=== PATIENT | male | born 1955 | race African-American/Black ===

== ENCOUNTER 2017-12-13 16:35 | Emergency (ER) | payer OTHER ==
[2017-12-13 17:09] VITALS: BP 144/70; PULSE 65; TEMP 97.4; BMI 28.7
--- NOTE | 2017-12-13 17:11 | PDOC ---
Rapid Medical Evaluation Chief Complaint: Foreign Body (FB) Time Seen by Provider: 12/13/17 17:07 Medical Evaluation: Allergies Allergy/AdvReac Type Severity Reaction Status Date / Time No Known Drug Allergies Allergy Verified 12/13/17 17:09 Vital Signs Temp Pulse Resp BP Pulse Ox 97.4 F L 65 16 144/70 99 12/13/17 17:05 12/13/17 17:05 12/13/17 17:05 12/13/17 17:05 12/13/17 17:05 12/13/17 17:11 I have performed a brief in-person evaluation of this patient. The patient presents with a chief complaint of: embedded earring to right earlobe, Pertinent physical exam findings: swollen embedded screw-on, earring back I have ordered the following: nothing The patient will proceed to the ED for further evaluation.
--- NOTE | 2017-12-13 18:15 | PDOC ---
History of Present Illness - General Chief Complaint: Foreign Body (FB) Stated Complaint: OBJECT IN RT EARLOBE Time Seen by Provider: 12/13/17 17:07 History Source: Patient Exam Limitations: No Limitations - History of Present Illness Initial Comments: CHIEF COMPLAINT: 62 y/o male with earring stuck in his right earlobe x 1 week. HISTORY OF PRESENT ILLNESS: The patient denies all other symptoms. Vital signs on arrival are within normal limits. REVIEW OF SYSTEMS: GENERAL/CONSTITUTIONAL: No fever/chills. No weakness. No weight change. MUSCULOSKELETAL: No joint or muscle swelling or pain. No neck or back pain. SKIN: +earring suck in right earlob NEUROLOGIC: No headache, vertigo, loss of consciousness, or loss of sensation. PHYSICAL EXAM: GENERAL: The patient is awake, alert, and fully oriented, in no acute distress. HEAD: Normal with no signs of trauma. EYES: Pupils equal, round and reactive to light, extraocular movements intact, sclera anicteric, conjunctiva clear. EXTREMITIES: Normal range of motion, no edema. NEUROLOGICAL: Normal speech, normal gait. SKIN: back to earring imbedded in posterior right earlobe. No surrounding erythema or edema Past History - Past Medical History Allergies/Adverse Reactions: Allergies Allergy/AdvReac Type Severity Reaction Status Date / Time No Known Drug Allergies Allergy Verified 12/13/17 17:09 Home Medications: Ambulatory Orders Atorvastatin Ca [Lipitor] 10 mg PO DAILY 12/24/16 Oxycodone HCl/Acetaminophen [Percocet 10-325 mg Tablet] 1 each PO TID PRN Tamsulosin HCl [Flomax] 0.4 mg PO DAILY 12/24/16 Aspirin Coated [Ecotrin -] 81 mg PO BID tablet.ec 12/28/16 Celecoxib [CeleBREX -] 200 mg PO DAILY capsule 12/28/16 Multivitamins [Multivit ([facility] Formulary)] 1 tab PO DAILY tab 12/28/16 Anemia: No Asthma: No Cancer: No Cardiac Disorders: No CVA: No COPD: No CHF: No Dementia: No Diabetes: No GI Disorders: No Disorders: Yes (BPH) HTN: No Hypercholesterolemia: Yes Liver Disease: No Seizures: No Thyroid Disease: No - Surgical History Abdominal Surgery: No Appendectomy: No Cardiac Surgery: No Cholecystectomy: No Lung Surgery: No Neurologic Surgery: No Orthopedic Surgery: Yes (RIGHT TOTAL HIP REPLACEMENT 2006) - Suicide/Smoking/Psychosocial Hx Smoking History: Never smoked Have you smoked in the past 12 months: No Hx Alcohol Use: Yes (SOCIALLY) Drug/Substance Use Hx: No Substance Use Type: Alcohol Hx Substance Use Treatment: No *Physical Exam - Vital Signs Last Vital Signs Temp Pulse Resp BP Pulse Ox 97.4 F L 65 16 144/70 99 12/13/17 17:05 12/13/17 17:05 12/13/17 17:05 12/13/17 17:05 12/13/17 17:05 Medical Decision Making - Medical Decision Making A/P: 62 y/o male with earring stuck in the back of his right earlobe. Used sanitized forceps to grasp and untwist the back of the earring. AFter earring removed the earlobe was cleaned with hydrogen peroxide and betadine. Pt tolerated procedure well. Instructed him to keep it clean and covered and return to the ER with any worsening or concerning symptoms. The patient verbalizes understanding of all instructions, has no further questions and is awaiting discharge. *DC/Admit/Observation/Transfer Diagnosis at time of Disposition: Foreign body in ear lobe Qualifiers: Encounter type: initial encounter Laterality: right Qualified Code(s): S00.451A - Superficial foreign body of right ear, initial encounter - Discharge Dispostion Disposition: HOME Condition at time of disposition: Improved - Referrals Referrals: Benja Dailey [Primary Care Provider] - - Patient Instructions Printed Discharge Instructions: DI for Removal of Foreign Body From Ear Additional Instructions: discharge Instructions: -Keep area clean and dry -Return to the ER with any worsening or concerning symptoms - Post Discharge Activity
== END 2017-12-13 18:38 | disposition home or self-care (01) ==
LOC: JERFT 16:35
PROC: 09C0XZZ Extirpation of Matter from Right External Ear, External Approach (ICD-10-PCS; principal; 2017-12-13)
DX: S00.451A Superficial foreign body of right ear, initial encounter (principal); W45.8XXA Other foreign body or object entering through skin, initial encounter; Y93.89 Activity, other specified; Y92.89 Other specified places as the place of occurrence of the external cause; Y99.8 Other external cause status
CPT/HCPCS: 10120-25; 99281-25

== ENCOUNTER 2018-11-03 08:39 | Inpatient (IN) | payer OTHER ==
[2018-11-03 09:00] VITALS: BP 130/77; PULSE 86; TEMP 97.8; BMI 24.4
--- NOTE | 2018-11-03 09:08 | PDOC ---
History of Present Illness - General Chief Complaint: Vomiting/Diarrhea Stated Complaint: Vomiting/Diarrhea Time Seen by Provider: 11/03/18 09:08 - History of Present Illness Initial Comments: 63yo M with PMH of BPH and HLD presenting with vomiting, diarrhea, and abdominal pain x 2 days. Endorses 4-5 episodes of nonbloody bilious vomiting as well as 4-5 episodes of nonbloody watery diarrhea. Patient states that he feels somewhat distended. No dysuria, hematuria, or frequency. Had a colonoscopy about 6-7 years ago which showed one polyp. Patient does not have a GI doctor. No prior abdominal surgeries. Denies fever, chills, chest pain, or shortness of breath. Past History - Past Medical History Allergies/Adverse Reactions: Allergies Allergy/AdvReac Type Severity Reaction Status Date / Time No Known Drug Allergies Allergy Verified 11/03/18 09:19 Home Medications: Ambulatory Orders NK [No Known Home Medication] 11/03/18 Anemia: No Asthma: No Cancer: No Cardiac Disorders: No CVA: No COPD: No CHF: No Dementia: No Diabetes: No GI Disorders: No Disorders: Yes (BPH) HTN: No Hypercholesterolemia: Yes Liver Disease: No Seizures: No Thyroid Disease: No - Surgical History Abdominal Surgery: No Appendectomy: No Cardiac Surgery: No Cholecystectomy: No Lung Surgery: No Neurologic Surgery: No Orthopedic Surgery: Yes (RIGHT TOTAL HIP REPLACEMENT 2006) - Immunization History Immunization Up to Date: No - Suicide/Smoking/Psychosocial Hx Smoking History: Never smoked Have you smoked in the past 12 months: No Information on smoking cessation initiated: No Hx Alcohol Use: No Drug/Substance Use Hx: No Substance Use Type: Alcohol Hx Substance Use Treatment: No Review of Systems - Review of Systems Comments:: Constitutional: no fever, no chills HEENT: no throat pain, no dysphagia Cardiovascular: no chest pain, no palpitations Respiratory: no cough, no shortness of breath Gastrointestinal: +abdominal pain, +vomiting, +diarrhea Genitourinary: no dysuria, no frequency Musculoskeletal: no myalgia, no arthralgia Skin: no rash, no itching Neurologic: no headache, no dizziness *Physical Exam - Vital Signs Last Vital Signs Temp Pulse Resp BP Pulse Ox 97.8 F 86 18 130/77 98 11/03/18 08:58 11/03/18 08:58 11/03/18 08:58 11/03/18 08:58 11/03/18 08:58 - Physical Exam Comments: General: Awake, alert, and fully oriented, in no acute distress Head: No signs of trauma Eyes: EOMI, sclera anicteric ENT: Dry mucus membranes Neck: Normal ROM, supple Lungs: Lungs clear, Normal breath sounds Cardio: Regular rhythm, S1 and S2 present Abdomen: Tender to palpation periumbilical area and LLQ. Soft, bowel sounds hypoactive. No guarding, no rebound, no masses Extremities: Normal range of motion, Distal pulses present SKIN: Warm, Dry, normal turgor Neurologic: Cranial nerves II through XII grossly intact. Normal speech Moderate Sedation - Procedure Monitoring Vital Signs: Procedure Monitoring Vital Signs Temperature 97.8 F 11/03/18 08:58 Pulse Rate 86 11/03/18 08:58 Respiratory Rate 18 11/03/18 08:58 Blood Pressure 130/77 11/03/18 08:58 O2 Sat by Pulse Oximetry (%) 98 11/03/18 08:58 ED Treatment Course - LABORATORY CBC & Chemistry Diagram: 11/03/18 09:40 11/03/18 09:40 Medical Decision Making - Medical Decision Making 63yo M with PMH of BPH and HLD presenting with vomiting, diarrhea, and abdominal pain x 2 days. No fevers, chills, chest pain, or shortness of breath. -Labs -CT abd/pelvis -GI cocktail given: Patient endorses improvement in pain, now rated 6/10 -No vomiting/ diarrhea since coming to the ED 11/03/18 11:50 CT abd/pelvis shows a distal SBO; Paging general surgery. Plan to admit EKG: rate 72, QTc 442, NSR 11/03/18 12:27 Awaiting callback from general surgery. buffing wheel presser has called three times and left a voicemail 11/03/18 12:44 Awaiting callback from general surgery. Spoke with David León, nurse practitioner, who accepted patient for admission under Dr. Sheikh 11/03/18 13:07 Dr. Cotton called back. Recommendations given, and she will evaluate the patient. Patient refuses NG tube. 11/03/18 13:48 Patient reluctant to stay in the hospital. Explained the necessity of staying and being evaluated by the general surgeon. Also spoke with his girlfriend over the phone. Dr. Cotton at the bedside. 11/03/18 14:26 Patient wants to leave the hospital in order to get a second opinion. Will prepare AMA forms. 11/03/18 15:20 Extensively explained the benefits and risks of admission and patient voiced understanding. He acknowledges the possibility of and significant morbidity upon leaving AMA. He plans to get a second opinion and present to another hospital. Advised to not eat or drink anything in anticipation for likely surgery. Patient signed out AMA. 11/03/18 16:10 *DC/Admit/Observation/Transfer Diagnosis at time of Disposition: SBO (small bowel obstruction) - Discharge Dispostion Disposition: AGAINST MEDICAL ADVICE Condition at time of disposition: Guarded Decision to Admit order: Yes - Referrals - Patient Instructions - Post Discharge Activity
[2018-11-03] MEDS ORDERED: ONDANSETRON 4 MG/2 ML VIAL IVPUSH ONE (09:41)
[2018-11-03] MEDS ORDERED: SODIUM CHLORIDE 1,000 ML IV STA ×2 (09:41→13:28)
[2018-11-03] MEDS ORDERED: MAG HYDROX/AL HYDROX/SIMETH -MYLANTA- ORAL SUSPENSION PO ONE (09:41)
[2018-11-03] MEDS ORDERED: FAMOTIDINE 20 MG/50 ML IVPB 20 MG/50 ML MG IVPB ONE ×2 (09:41→10:03)
--- NOTE | 2018-11-03 09:49 | PDOC ---
Attending Attestation - Resident Resident Name: Cara Shelton - ED Attending Attestation I have performed the following: I have examined & evaluated the patient, The case was reviewed & discussed with the resident, I agree w/resident's findings & plan, Exceptions are as noted - HPI HPI: 11/03/18 09:46 63-year-old male with history of hyperlipidemia, BPH presents with left-sided abdominal pain, nausea vomiting and diarrhea for 2 days. The patient denies sick contacts or recent travels. Thinks that he may have eaten something bad. Denies abdominal surgery. Patient started developing constant periumbilical left lower quadrant pain with multiple episodes of vomiting. Has had multiple loose stools. Denies fevers. Denies dysuria. Last had a colonoscopy several years ago with reportedly small polyp. - Physicial Exam PE: 11/03/18 09:47 GENERAL: Awake, alert, and fully oriented, in no acute distress HEAD: No signs of trauma EYES: PERRLA, EOMI, ENT: Auricles normal inspection, hearing grossly normal, nares patent, + dry mucous membranes NECK: Normal ROM, supple ABDOMEN: Soft, nontender, +TTP LLQ and angel-umbilical region. No guarding, no rebound. No masses EXTREMITIES: Normal range of motion, no edema. No clubbing or cyanosis. No cords, erythema, or tenderness NEUROLOGICAL: Cranial nerves II through XII grossly intact. Normal speech SKIN: Warm, Dry, normal turgor, no rashes or lesions noted. - Medical Decision Making 11/03/18 09:48 Vital Signs Temp Pulse Resp BP Pulse Ox 97.8 F 86 18 130/77 98 11/03/18 08:58 11/03/18 08:58 11/03/18 08:58 11/03/18 08:58 11/03/18 08:58 63-year-old male presents with nausea, vomiting, diarrhea and left-sided abdominal pain. Differential includes gastroenteritis, colitis, diverticulitis, pancreatitis, biliary colic, other acute abdominal pathology. We'll obtain labs , CAT scan and pelvis and urinalysis and reassess. 11/03/18 13:15 CBC, BMP 11/03/18 09:40 11/03/18 09:40 CMP Sodium 139 mmol/L (136-145) 11/03/18 09:40 Potassium 4.4 mmol/L (3.5-5.1) 11/03/18 09:40 Chloride 104 mmol/L (98-107) 11/03/18 09:40 Carbon Dioxide 29 mmol/L (21-32) 11/03/18 09:40 Anion Gap 6 MMOL/L (8-16) L 11/03/18 09:40 BUN 19 mg/dL (7-18) H 11/03/18 09:40 Creatinine 1.4 mg/dL (0.55-1.3) H 11/03/18 09:40 Creat Clearance w eGFR 51.52 (>60) 11/03/18 09:40 Random Glucose 112 mg/dL (74-106) H 11/03/18 09:40 Calcium 9.2 mg/dL (8.5-10.1) 11/03/18 09:40 Total Bilirubin 1.3 mg/dL (0.2-1) H 11/03/18 09:40 AST 22 U/L (15-37) 11/03/18 09:40 ALT 37 U/L (13-61) 11/03/18 09:40 Alkaline Phosphatase 100 U/L (45-117) 11/03/18 09:40 Troponin I < 0.02 ng/ml (0.00-0.05) 11/03/18 09:40 Total Protein 7.6 g/dl (6.4-8.2) 11/03/18 09:40 Albumin 3.9 g/dl (3.4-5.0) 11/03/18 09:40 Lipase 78 U/L (73-393) 11/03/18 09:40 Urine Test Results Urine Color Dkyellow 11/03/18 09:40 Urine Appearance Clear 11/03/18 09:40 Urine pH 5.0 (5.0-8.0) 11/03/18 09:40 Ur Specific [place] 1.031 (1.010-1.035) 11/03/18 09:40 Urine Protein Negative (NEGATIVE) 11/03/18 09:40 Urine Glucose (UA) Negative (NEGATIVE) 11/03/18 09:40 Urine Ketones Negative (NEGATIVE) 11/03/18 09:40 Urine Blood Negative (NEGATIVE) 11/03/18 09:40 Urine Nitrite Negative (NEGATIVE) 11/03/18 09:40 Urine Bilirubin Negative (<2.0 mg/dL) 11/03/18 09:40 Ur Leukocyte Esterase Negative (NEGATIVE) 11/03/18 09:40 CT scan of abdomen and pelvis shows: small bowel obstruction with ?vascular compromise. Pt made NPO. Stat gen surg consult. Admit. 11/03/18 15:52 The patient was seen and evaluated by Dr. Cotton. The patient however wants to leave [place]. He states that he wishes for another opinion and already spoke to his family. Both Dr. Cotton and I have expressed our concerns for complications of a bowel obstruction, including perforation. However, the patient continues to wish not to stay. He has capacity and is AAOx3. Pt has decided to leave [place]. Heart Score/ECG Review #1 ECG reviewed & interpreted by me at: 09:50 11/03/18 10:04 NSR 72, no std/tayla, T wave flat III, normal axis, normal intervals, QTC 442 msec
[2018-11-03 10:03] LABS: BASO % 0.2 % (0-2.0); EOS % 0.7 % (0-4.5); HEMATOCRIT 46.3 % (35.4-49); HEMOGLOBIN 16.2 GM/dL (11.7-16.9); LYMPH % 37.6 % (8-40); MCH 31.6 pg (25.7-33.7); MEAN CELL VOLUME 90.4 fl (80-96); MEAN PLT VOLUME 7.3 fl (7.5-11.1); MONO % 13.6 % (3.8-10.2); NEUT % 47.9 % (42.8-82.8); PLATELET COUNT 282 K/MM3 (134-434); RBC 5.12 M/mm3 (4.00-5.60); RDW 14.1 % (11.9-15.9); WHITE BLOOD COUNT 6.3 K/mm3 (4.0-10.0)
[2018-11-03] MEDS ORDERED: MAG HYDROX/AL HYDROX/SIMETH 30 ML UNIT-DOSE CUP ONE (10:03)
[2018-11-03] MEDS ORDERED: ONDANSETRON 4 MG/2 ML VIAL ONE (10:03)
[2018-11-03 10:09] LABS: URINE APPEARANCE CLEAR; URINE BILIRUBIN NEGATIVE (<2.0 mg/dL); URINE COLOR DKYELLOW; URINE GLUCOSE (UA) NEGATIVE (NEGATIVE); URINE KETONE NEGATIVE (NEGATIVE); URINE LEUK ESTERASE NEGATIVE (NEGATIVE); URINE NITRITE NEGATIVE (NEGATIVE); URINE PROTEIN NEGATIVE (NEGATIVE); URINE UROBILINOGEN NEGATIVE mg/dL (0.2-1.0)
[2018-11-03 10:38] LABS: ALBUMIN 3.9 g/dl (3.4-5.0); ALK PHOS 100 U/L (45-117); ANION GAP 6 MMOL/L (8-16); BILIRUBIN,TOTAL 1.3 mg/dL (0.2-1); BLOOD UREA NITROGEN 19 mg/dL (7-18); CALCIUM 9.2 mg/dL (8.5-10.1); CHLORIDE 104 mmol/L (98-107); CO2 29 mmol/L (21-32); CREATININE 1.4 mg/dL (0.55-1.3); GLUCOSE,RANDOM 112 mg/dL (74-106); LIPASE 78 U/L (73-393); POTASSIUM 4.4 mmol/L (3.5-5.1); SGOT/AST 22 U/L (15-37); SGPT/ALT 37 U/L (13-61); SODIUM 139 mmol/L (136-145); TOT PROT 7.6 g/dl (6.4-8.2)
[2018-11-03] MEDS ORDERED: PIPERACILLIN/TAZOB 4.5 GM 4.5 GM in DEXTROSE 5%-WATER 100 ML IVPB ONE (13:30)
[2018-11-03] MEDS ORDERED: SODIUM CHLORIDE 1,000 ML IV SCH (13:30)
[2018-11-03] MEDS ORDERED: PIPERACILLIN/TAZOB 3.375 GM 3.375 GM/50 ML BAG IVPB ONE (13:43)
--- NOTE | 2018-11-03 15:39 | CONSULT ---
Consult Consult Specialty:: General Surgery Referred by:: Dr. Shelton Reason for Consultation:: SBO, no previous surgeries - History of Present Illness Chief Complaint: left abdominal pain, n/v, diarrhea History of Present Illness: 63yo M with h/o high cholesterol not on meds, s/p bilateral hip replacements, presented with colicky abdominal pain, more left-sided, starting since Saturday. It has been associated with diarrhea also starting then, and intermittent nausea and vomiting, as well as subjective fever/"hot flashes" (more with emesis ). The pain would come and go, and he tried Aleve for it, but it came back. He thought he was a getting a "cold in his stomach." Last night, he had Gatorade and crackers. He went out to get Rachel-T[place], which helped his stomach feel better when he took it, and he was able to sleep last night. Today, he thought he would come to the ER, "just to check out what was happening," not because any of his symptoms got worse. Last po was last night, still having diarrhea. In ER, labs significant for dehydration, Cr 1.4, Hb 16, wbc only 6.3. CT was done with IV but no enteral contrast showing dilated small bowel loops, one with concentric wall thickening, up to 5cm, and distally decompressed bowel, consistent with SBO. He denies any abdominal surgeries. He was given IVF and kept NPO. Surgery was asked to evaluate. He is seen and examined in ER holding. He feels ok, without pain currently. He states he felt better after rachel-seltzer last night. He indicates the pain was more on the left side when it was there, and admits his belly is somewhat bloated. Lactate is pending. Nurse/ER tried to discuss NG placement with him, but he refused, and also indicated he did not want surgery. - History Source History Provided By: Patient Limitations to Obtaining History: No Limitations - Past Medical History Cardio/Vascular: Yes: Hyperlipdemia (not on meds) Musculoskeletal: Yes: Osteoarthritis - Past Surgical History Past Surgical History: Yes: Colonoscopy (few years ago), Joint Replacement ( bilateral hips, R 2006, L 2015) - Alcohol/Substance Use Hx Alcohol Use: Yes (occasional) History of Substance Use: reports: None - Smoking History Smoking history: Never smoked Have you smoked in the past 12 months: No - Social History ADL: Independent Occupation: retired Home Medications - Allergies Allergies/Adverse Reactions: Allergies Allergy/AdvReac Type Severity Reaction Status Date / Time No Known Drug Allergies Allergy Verified 11/03/18 09:19 - Home Medications Home Medications: Ambulatory Orders NK [No Known Home Medication] 11/03/18 Home Medications (free text): Baclofen prn, last 4d ago for R thigh muscle issues. Aleve prn, had some in last few days Family Disease History - Family Disease History Family Disease History: Heart Disease: Mother (valve surgery, at 48 of ? heart problem ("just fell asleep")), Other: Father (alive at 94, had prostate surgery) Review of Systems - Review of Systems Constitutional: reports: Fever (subjective). denies: Chills Eyes: denies: Blurred Vision, Recent Change in Vision HENT: denies: Difficult Swallowing, Throat Pain Neck: denies: Swollen Glands, Tenderness Cardiovascular: denies: Chest Pain, Palpitations Respiratory: reports: Cough (mild recently, thought he might be getting a cold) . denies: SOB Gastrointestinal: reports: Abdominal Pain (with hpi), Diarrhea (with hpi), Nausea (with hpi), Vomiting (with hpi). denies: Constipation Genitourinary: denies: Burning, Dysuria Musculoskeletal: reports: Muscle Pain (sometimes R thigh). denies: Back Pain, Joint Pain Integumentary: denies: Change in Color, Rash Neurological: denies: Dizziness, Headache, Unsteady Gait Psychiatric: denies: Anxiety, Depression Physical Exam Vital Signs: Vital Signs Temperature 97.8 F 11/03/18 08:58 Pulse Rate 86 11/03/18 08:58 Respiratory Rate 18 11/03/18 08:58 Blood Pressure 130/77 11/03/18 08:58 O2 Sat by Pulse Oximetry (%) 98 11/03/18 08:58 Constitutional: Yes: Well Nourished, No Distress, Calm Eyes: Yes: Conjunctiva Clear, EOM Intact HENT: Yes: Atraumatic, Normocephalic Neck: Yes: Supple, Trachea Midline Cardiovascular: Yes: Regular Rate and Rhythm. No: Murmur Respiratory: Yes: Regular, CTA Bilaterally Gastrointestinal: Yes: Normal Bowel Sounds (little more on right), Soft, Distention (with tympany), Tenderness (mild periumbilical and left sided, no rebound or guarding). No: Tenderness, Epigastrium ...Rectal Exam: Yes: Deferred Renal/: No: CVA Tenderness - Left, CVA Tenderness - Right Musculoskeletal: No: Back Pain (no direct tenderness), Joint Swelling Extremities: No: Cool, Cyanosis Edema: No Peripheral Pulses WNL: Yes Integumentary: No: Jaundice, Rash Neurological: Yes: Alert, Oriented. No: Unsteady Gait Psychiatric: Yes: Alert, Oriented Labs: CBC, BMP 11/03/18 09:40 11/03/18 09:40 CMP Sodium 139 mmol/L (136-145) 11/03/18 09:40 Potassium 4.4 mmol/L (3.5-5.1) 11/03/18 09:40 Chloride 104 mmol/L (98-107) 11/03/18 09:40 Carbon Dioxide 29 mmol/L (21-32) 11/03/18 09:40 Anion Gap 6 MMOL/L (8-16) L 11/03/18 09:40 BUN 19 mg/dL (7-18) H 11/03/18 09:40 Creatinine 1.4 mg/dL (0.55-1.3) H 11/03/18 09:40 Creat Clearance w eGFR 51.52 (>60) 11/03/18 09:40 Random Glucose 112 mg/dL (74-106) H 11/03/18 09:40 Lactic Acid 0.9 mmol/L (0.4-2.0) 11/03/18 13:02 Calcium 9.2 mg/dL (8.5-10.1) 11/03/18 09:40 Total Bilirubin 1.3 mg/dL (0.2-1) H 11/03/18 09:40 AST 22 U/L (15-37) 11/03/18 09:40 ALT 37 U/L (13-61) 11/03/18 09:40 Alkaline Phosphatase 100 U/L (45-117) 11/03/18 09:40 Troponin I < 0.02 ng/ml (0.00-0.05) 11/03/18 09:40 Total Protein 7.6 g/dl (6.4-8.2) 11/03/18 09:40 Albumin 3.9 g/dl (3.4-5.0) 11/03/18 09:40 Lipase 78 U/L (73-393) 11/03/18 09:40 Urine Test Results Urine Color Dkyellow 11/03/18 09:40 Urine Appearance Clear 11/03/18 09:40 Urine pH 5.0 (5.0-8.0) 11/03/18 09:40 Ur Specific [place] 1.031 (1.010-1.035) 11/03/18 09:40 Urine Protein Negative (NEGATIVE) 11/03/18 09:40 Urine Glucose (UA) Negative (NEGATIVE) 11/03/18 09:40 Urine Ketones Negative (NEGATIVE) 11/03/18 09:40 Urine Blood Negative (NEGATIVE) 11/03/18 09:40 Urine Nitrite Negative (NEGATIVE) 11/03/18 09:40 Urine Bilirubin Negative (<2.0 mg/dL) 11/03/18 09:40 Ur Leukocyte Esterase Negative (NEGATIVE) 11/03/18 09:40 Imaging - Results Cat Scan: Report Reviewed, Image Reviewed (images personally reviewed, discussed with Dr. Robb, radiology; dilated small bowel loops with decompressed distal SB and colon, concentric wall thickening of at least one SB loop, no clear mass or etiology for transition, likely distal SB, prox loops up to 5cm, no enteral contrast used; no free air) Problem List - Problems (1) SBO (small bowel obstruction) Assessment/Plan: no previous abdominal surgeries, so not secondary to adhesions unclear etiology but highly unlikely to resolve spontaneously to be admitted to medicine NPO/IVF - generous hydration needs NGT placed - pt has declined so far lactate pending discussed in detail with patient need for operative exploration to identify cause of obstruction and relieve it, likely with bowel resection, unlikely with ostomy but possible Risks, benefits and alternatives of exploratory laparotomy, possible bowel resection, possible ostomy discussed, including but not limited to bleeding, infection, injury to adjacent structures, intestinal leak or injury, intraabdominal abscess, incisional hernia, need for further procedures, ; alternative of no surgery carries risks of progression of bowel dilation and obstruction, perforation, peritonitis, sepsis, . Patient does not want to have surgery "today," and initially asked if he could leave and come back for it, or if it would get better with rest. I explained that there was no reason to believe that it would get better without surgery, and that if he chose to leave it would be against medical advice, risking all of the above as noted, including returning to the ER in extremis and requiring even more emergent surgery, possibly more extensive and with higher risks. He wanted to make some calls and think about it before deciding whether to sign consent or accept NGT, which he also does not want. He appeared to fully understand the information discussed, and his risks if he decides to leave. Anu given, plan to consult ID if he stays. If he is agreeable to surgery, would do tonight. Will come back to place NGT and sign consent, if he decides to do so. Discussed with ER. Code(s): K56.609 - UNSP INTESTNL OBST, UNSP TO PARTIAL VERSUS COMPLETE OBST (2) LUQ pain Code(s): R10.12 - LEFT UPPER QUADRANT PAIN (3) Nausea & vomiting Code(s): R11.2 - NAUSEA WITH VOMITING, UNSPECIFIED Qualifiers: Vomiting type: unspecified Vomiting Intractability: non-intractable Qualified Code(s): R11.2 - Nausea with vomiting, unspecified (4) Diarrhea Code(s): R19.7 - DIARRHEA, UNSPECIFIED Qualifiers: Diarrhea type: functional diarrhea Qualified Code(s): K59.1 - Functional diarrhea (5) HLD (hyperlipidemia) Code(s): E78.5 - HYPERLIPIDEMIA, UNSPECIFIED Qualifiers: Hyperlipidemia type: unspecified Qualified Code(s): E78.5 - Hyperlipidemia , unspecified (6) S/P bilateral hip replacements Code(s): Z96.643 - PRESENCE OF ARTIFICIAL HIP JOINT, BILATERAL
--- NOTE | 2018-11-03 15:41 | EKG ---
Test Reason : Blood Pressure : / mmHG Vent. Rate : 072 BPM Atrial Rate : 072 BPM P-R Int : 158 ms QRS Dur : 088 ms QT Int : 404 ms P-R-T Axes : 054 -12 023 degrees QTc Int : 442 ms NORMAL SINUS RHYTHM NORMAL ECG WHEN COMPARED WITH ECG OF 01-NOV-2016 11:30, T WAVE VARIATION Confirmed by KY SANTOS MD ([id number]) on 11/03/2018 3:41:38 PM Referred By: Confirmed By:KY SANTOS MD
== END 2018-11-03 16:20 | disposition left against medical advice (07) | DRG 247 ==
LOC: JER 08:39 → JERBED 12:30
PROVIDERS: ADMIT Family Medicine; ATTEND Family Medicine
DX: K56.609 Unspecified intestinal obstruction, unspecified as to partial versus complete obstruction (principal); N40.0 Benign prostatic hyperplasia without lower urinary tract symptoms; E78.5 Hyperlipidemia, unspecified
CPT/HCPCS: 36415; 74177-TC; 80053; 81003; 83605; 83690; 84484; 85025; 86850; 86900; 86901; 87086; 93005; 93010; 99282-25; J7030

== ENCOUNTER 2022-08-31 11:18 | Emergency (ER) | payer OTHER ==
[2022-08-31 12:05] VITALS: BP 127/76; PULSE 69; RESP 19; TEMP 97.8; BMI 28.8
[2022-08-31 13:37] LABS: BASO % 0.6 % (0-2.0); EOS % 1.3 % (0-4.5); HEMATOCRIT 38.5 % (35.4-49); HEMOGLOBIN 13.2 GM/dL (11.7-16.9); LYMPH % 31.1 % (8-40); MCH 32.2 pg (25.7-33.7); MCHC 34.2 g/dl (32.0-35.9); MEAN CELL VOLUME 94.2 fl (80-96); MONO % 8.1 % (3.8-10.2); NEUT % 58.9 % (42.8-82.8); PLATELET COUNT 238 10^3/uL (134-434); RBC 4.09 M/mm3 (4.00-5.60); RDW 14.1 % (11.9-15.9); WHITE BLOOD COUNT 5.3 K/mm3 (4.0-10.0)
[2022-08-31 13:48] LABS: INR 1.01 (0.83-1.09); PROTHROMBIN TIME (PATIENT) 11.6 SEC (9.7-13.0)
[2022-08-31 13:51] LABS: ACTIVATED PTT 32.4 SECONDS (25.2-36.5)
[2022-08-31 14:15] LABS: CALCIUM 8.9 mg/dL (8.5-10.1)
[2022-08-31 14:16] LABS: ALBUMIN 3.6 g/dl (3.4-5.0); BLOOD UREA NITROGEN 19.1 mg/dL (7-18)
[2022-08-31 14:21] LABS: TOT PROT 6.9 g/dl (6.4-8.2)
== END 2022-08-31 16:00 | disposition home or self-care (01) ==
LOC: JER 11:18
DX: K62.5 Hemorrhage of anus and rectum (principal)
CPT/HCPCS: 36415; 80053; 82272; 85025; 85610; 85730; 86850; 86900; 86901; 99283-25; C9803-CS; U0003; U0005

== ENCOUNTER 2024-07-02 15:08 | Emergency (ER) | payer OTHER ==
[2024-07-02 15:35] VITALS: BP 110/63; PULSE 80; RESP 19; TEMP 98.7; BMI 29.5
[2024-07-02] MEDS ORDERED: IBUPROFEN 600 MG TABLET (FP) PO ONE (15:50)
[2024-07-02] MEDS: IBUPROFEN 600 MG TABLET (FP) PO ONE (15:52)
== END 2024-07-02 16:51 | disposition home or self-care (01) ==
LOC: JERFT 15:08
DX: S89.91XA Unspecified injury of right lower leg, initial encounter (principal); W01.198A Fall on same level from slipping, tripping and stumbling with subsequent striking against other object, initial encounter
CPT/HCPCS: 73562-TC-RT-FY; 99283-25